=== PATIENT | male | born 1995 | race African-American/Black ===

== ENCOUNTER 2017-03-13 07:19 | Day surgery (SDC) | payer OTHER ==
[2017-03-12 10:15] VITALS: BMI 39.4
[2017-03-13] MEDS ORDERED: MIDAZOLAM HCL 2 MG/2 ML SINGLE DOSE VIAL ONE ×3 (09:26→09:54)
[2017-03-13] MEDS ORDERED: DEXAMETHASONE SOD PHOSPHATE/PF 10 MG/ML SDV ONE (09:26)
[2017-03-13] MEDS ORDERED: ROPIVACAINE HCL 0.5% 30ML VIAL ONE (09:26)
[2017-03-13] MEDS ORDERED: ONDANSETRON 4 MG/2 ML VIAL ONE (10:42)
[2017-03-13] MEDS ORDERED: DEXAMETHASONE SOD PHOSPHATE 4 MG/1 ML VIAL ONE (10:42)
[2017-03-13] MEDS ORDERED: PROPOFOL 20 ML ONE ×5 (10:44→12:03)
[2017-03-13] MEDS ORDERED: ceFAZolin SODIUM 1 GM VIAL ONE (10:49)
[2017-03-13] MEDS ORDERED: BACITRACIN 15 GM TUBE TOPICAL OINTMENT ONE (12:21)
[2017-03-13] MEDS ORDERED: oxyCODONE HCL 5 MG TABLET PO PRN (12:47)
[2017-03-13] MEDS ORDERED: LACTATED RINGERS SOLUTION 1,000 ML IV SCH (13:00)
[2017-03-13] MEDS ORDERED: PROMETHAZINE HCL 25 MG/1 ML VIAL IVPUSH PRN (13:05)
[2017-03-13 13:14] VITALS: TEMP 97.7
--- NOTE | 2017-03-13 13:16 | OP ---
DATE OF OPERATION: 03/13/2017 PREOPERATIVE DIAGNOSIS: Right unstable ankle fracture. POSTOPERATIVE DIAGNOSIS: Right unstable ankle fracture. PROCEDURE: Right ankle open reduction internal fixation, as well as open reduction internal fixation of the syndesmosis. SURGEON: Edinson Rodgers MD GEOSPATIAL SCIENTIST: SHAHLA Lawler, her skillful assistance was necessary for the safe and timely performance of the procedure. Ms. Laughlin was able to aid in limb positioning, traction, fracture reduction, as well as the insertion of orthopedic fixation hardware. ANESTHESIA TYPE: Spinal plus regional. POSTOPERATIVE CONDITION: Stable. COMPLICATIONS: None. IMPLANTS: [place] locking distal fibular plate, [employer] TightRope x1. TOURNIQUET TIME: 1 hour. INDICATIONS: This is a pleasant 21-year-old gentleman who suffered an ankle fracture. Radiography demonstrated widening of the medial clear space and a distal fibular fracture consistent with an unstable fracture. Treatment options including non-operative management with casting were discussed. Non-operative care would result in malunion and potential instability of the ankle leading to posttraumatic arthrosis. Operative management was suggested. Operative risks reviewed in detail, including bleeding, infection, neurovascular injury, need for further surgery, postoperative pain and stiffness, nonunion, malunion, hardware failure or cutout. We discussed the medical risks, such as heart attack, stroke, DVT, PE or . I addressed the patient's questions. I addressed his family's questions. They verbalized understanding and elected to proceed. PROCEDURE: The patient was brought to the operating room, where spinal anesthesia was administered. Preoperative block had been provided in the holding area. The right lower extremity was then prepped and draped in the usual sterile fashion. A preoperative dose of antibiotic was given and the usual timeout procedure was performed. At this point, an incision was planned out over the distal fibula. The limb was now exsanguinated and the tourniquet was inflated to 275 mmHg. The incision was now carried down through skin to subcutaneous tissue, down to bone distally and then proximally more superficially to avoid any injury to the superficial peroneal nerve. was used proximally to expose the fracture site. Fracture site now being exposed, any loose debris was removed using a curette. The fracture site was irrigated. A reduction forceps was now placed across the fracture site and it was manipulated into anatomic alignment. A lag screw was now placed, 2.5 mm in the standard anterior posterior direction. Lag screw placement and fracture reduction were confirmed fluoroscopically, as well as visually. Both were satisfactory. A neutralization plate was then chosen and affixed to the side of the bone. This was affixed proximally using non-locking screws and then more distally using locking and non-locking screws. The ankle was now tested in an external rotation stress test. There was some mild widening of the medial clear space. The decision was made now to perform fixation of the syndesmosis. The 3.7 mm drill bit was drilled across the fibula and then through the tibia and out through the medial tibial cortex. A TightRope device was now passed across the fibula and tibia. It was toggled onto the medial tibial cortex. The TightRope device was now tightened maintaining the ankle in dorsiflexion. Radiography was now performed again demonstrating no further widening of the syndesmosis. At this point, the entire construct was examined both visually and fluoroscopically. Both fracture reduction and hardware placement were satisfactory. The excess sutures were now cut. The deep tissue was approximated using 0 Vicryl. The subcutaneous tissue was approximated using 2-0 Vicryl. The skin was closed using a running 3-0 nylon. Sterile dressings were placed. The tourniquet was let down. The patient was placed into a well-padded short leg cast. He was transferred to the recovery room in stable condition. Haley [id number]
[2017-03-13 18:13] VITALS: BP 128/73; PULSE 91
== END 2017-03-13 18:14 | disposition home or self-care (01) ==
LOC: FASU 07:19
PROVIDERS: ATTEND Orthopaedic Surgery Sports Medicine
PROC: 0SSF0ZZ Reposition Right Ankle Joint, Open Approach (ICD-10-PCS; 2017-03-13)
PROC: 0QSJ04Z Reposition Right Fibula with Internal Fixation Device, Open Approach (ICD-10-PCS; principal; 2017-03-13 10:03)
DX: S82.61XA Displaced fracture of lateral malleolus of right fibula, initial encounter for closed fracture (principal); S93.431A Sprain of tibiofibular ligament of right ankle, initial encounter; X58.XXXA Exposure to other specified factors, initial encounter; Y93.9 Activity, unspecified; Y92.9 Unspecified place or not applicable
CPT/HCPCS: 73610-TC-RT; 94760